=== PATIENT | male | born 1985 | race American Indian/Alaskan Native ===

== ENCOUNTER 2017-08-22 19:28 | Emergency (ER) | payer OTHER ==
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
[2017-08-22] MEDS ORDERED: PERCOCET 5/325 PO ONE (23:55)
[2017-08-23 04:40] VITALS: BP 120/74
== END 2017-08-23 04:40 | disposition home or self-care (01) ==
LOC: ED 19:28
DX: M25.561 Pain in right knee (principal); V89.2XXA Person injured in unspecified motor-vehicle accident, traffic, initial encounter; Y93.9 Activity, unspecified; Y99.9 Unspecified external cause status; Y92.410 Unspecified street and highway as the place of occurrence of the external cause
CPT/HCPCS: 99282

== ENCOUNTER 2021-09-28 23:40 | Inpatient (IN) | payer SELFPAY ==
--- NOTE | 2021-09-29 00:49 | Emergency Department Report ---
HPI - General Chief Complaint: Syncope Time Seen by Provider: 09/29/21 00:29 - HPI HPI: MSE 4 The patient is a 35-year-old male present with chief complaint of syncope. Patient states this evening he awakened to cook some food for his . The patient states he was in the kitchen making hamburgers when he began to feel dizzy. Patient began to walk back to the room to tell his how he is feeling when she states he collapsed forward striking his chest on a coffee table. The states she picked him up and laid him on the ground when he ap peared to shake. The states she attempted to roll him on his side and when she screamed he immediately stopped and looked at her and said "I am okay, I am okay." After coming to the patient noticed pain in his chest whenever he takes a deep breath. Of note 2 weeks ago the patient had an episode of left-sided chest pain described as a tightness that lasted approximately 8 hours. Patient states the pain came on at rest but eventually subsided after 8 hours. Patient denies history of shortness of breath, cough or fever. Patient admits to some nausea but denies vomiting or diarrhea. The patient has not received vaccinations against Covid but states he has tested twice a week and last tested negative 09/26/2021. Patient states he's never had a stress test or cardiac catheterization ED Past Medical Hx - Past Medical History Previous Medical History?: No - Surgical History Past Surgical History?: No - Family History Family history: no significant - Social History Smoking Status: Current Some Day Smoker (Black and milds) Substance Use Type: Alcohol (Rarely), Marijuana - Medications Home Medications: Home Medications Medication Instructions Recorded Confirmed Last Taken Type Ibuprofen [Motrin] 600 mg PO Q8H PRN #15 tablet 08/23/17 Unknown Rx ED Review of Systems ROS: Stated complaint: SYNCOPE EPISODE/SEIZURE/WEAKNESS Other details as noted in HPI Constitutional: denies: diaphoresis, fever Eyes: denies: eye pain ENT: denies: throat pain Respiratory: denies: cough, shortness of breath Cardiovascular: chest pain Endocrine: no symptoms reported Gastrointestinal: nausea. denies: vomiting Genitourinary: denies: dysuria Musculoskeletal: myalgia Neurological: denies: headache Physical Exam - Physical Exam Vital Signs: Vital Signs 09/29/21 00:21 Temperature 97.8 F Pulse Rate 63 Respiratory 18 Rate Blood Pressure 100/73 [Left] O2 Sat by Pulse 99 Oximetry Physical Exam: GENERAL: The patient is well-developed well-nourished male lying on stretcher not appearing to be in acute distress. [] HEENT: Normocephalic. Atraumatic. Extraocular motions are intact. Patient has moist mucous membranes. NECK: Supple. Trachea midline CHEST/LUNGS: Clear to auscultation. There is no respiratory distress noted. HEART/CARDIOVASCULAR: Regular. There is no tachycardia. There is no gallop rub or murmur. ABDOMEN: Abdomen is soft, nontender. Patient has normal bowel sounds. There is no abdominal distention. SKIN: There is no rash. There is no edema. There is no diaphoresis. NEURO: The patient is awake, alert, and oriented. The patient is cooperative. The patient has no focal neurologic deficits. The patient has normal speech. Cranial nerves II through XII grossly intact. GCS 15 MUSCULOSKELETAL: There is no evidence of acute injury. ED Course Vital Signs 09/29/21 00:21 Temperature 97.8 F Pulse Rate 63 Respiratory 18 Rate Blood Pressure 100/73 [Left] O2 Sat by Pulse 99 Oximetry ED Medical Decision Making - Lab Data Result diagrams: 09/29/21 00:50 09/29/21 00:50 - EKG Data -: EKG Interpreted by Me EKG shows normal: sinus rhythm Rate: bradycardia (58 bpm) - EKG Data When compared to previous EKG there are: previous EKG unavailable Interpretation: nonspecific ST-T wave giancarlo (Early repolarization, T wave inversion lead III) - Radiology Data Radiology results: pending (CT head) - Differential Diagnosis ACS, PE, dysrhythmia, electrolyte imbalance, seizure, Critical care attestation.: If time is entered above; I have spent that time in minutes in the direct care of this critically ill patient, excluding procedure time. ED Disposition Clinical Impression: Syncope Disposition: 09 ADMITTED INPATIENT Is pt being admited?: Yes Condition: Fair Instructions: Syncope (ED)
[2021-09-29 01:26] LABS: Basophils # (Auto) 0.1 K/mm3 (0.0-0.1); Basophils % (Auto) 0.8 % (0.0-1.8); Eosinophils # (Auto) 0.2 K/mm3 (0.0-0.4); Eosinophils % (Auto) 2.8 % (0.0-4.3); Hematocrit 46.1 % (35.5-45.6); Hemoglobin 15.8 gm/dl (11.8-15.2); Lymphocytes # (Auto) 3.4 K/mm3 (1.2-5.4); Lymphocytes % (Auto) 39.8 % (13.4-35.0); Mean Corpuscular HGB Conc 34 % (32-34); Mean Corpuscular Volume 89 fl (84-94); Monocytes # (Auto) 0.6 K/mm3 (0.0-0.8); Monocytes % (Auto) 6.9 % (0.0-7.3); Platelet Count 216 K/mm3 (140-440); Red Blood Count 5.17 M/mm3 (3.65-5.03); Red Cell Distribution Width 14.6 % (13.2-15.2)
--- NOTE | 2021-09-29 01:29 | Cat Scan Report ---
CT HEAD WITHOUT CONTRAST INDICATION / CLINICAL INFORMATION: Syncope. TECHNIQUE: All CT scans at this location are performed using CT dose reduction for ALARA by means of automated exposure control. COMPARISON: None available. FINDINGS: HEMORRHAGE: None. EXTRA-AXIAL SPACES: Normal in size and morphology for the patient's age. VENTRICULAR SYSTEM: Normal in size and morphology for the patient's age. CEREBRAL PARENCHYMA: No significant abnormality. No acute territorial infarct. MIDLINE SHIFT / HERNIATION: None. CEREBELLUM / BRAINSTEM: No significant abnormality. ORBITS: Normal as visualized. SOFT TISSUES: No significant abnormality. SKULL: No significant abnormality. PARANASAL SINUSES / MASTOID AIR CELLS: Normal as visualized. ADDITIONAL FINDINGS: None. IMPRESSION: 1. No acute intracranial abnormality. Signer Name: Puja Evans MD Signed: 09/29/2021 2:25 AM Workstation Name: [id number]
[2021-09-29 01:32] LABS: Alanine Aminotransferase 13 units/L (7-56); Albumin 4.2 g/dL (3.9-5); BUN/Creatinine Ratio 15; Blood Urea Nitrogen 17 mg/dL (9-20); Calcium 9.1 mg/dL (8.4-10.2); Hemolysis Index 8
[2021-09-29 01:35] LABS: Free T4 (Free Thyroxine) 1.03 ng/dL (0.76-1.46)
[2021-09-29] MEDS ORDERED: SODIUM CHLORIDE 0.9% 1000 ML 1,000 ML IV ONE (01:54)
[2021-09-29] MEDS ORDERED: HYDROmorphone 1 MG/1 ML INJ IV PRN (03:28)
[2021-09-29] MEDS ORDERED: MORPHINE 4 MG/1 ML INJ IV PRN (03:28)
[2021-09-29] MEDS ORDERED: ACETAMINOPHEN 325 MG TAB PO PRN (03:28)
[2021-09-29] MEDS ORDERED: SODIUM CHLORIDE 0.9% 1000 ML 1,000 ML IV SCH (03:30)
--- NOTE | 2021-09-29 03:34 | History and Physical Report ---
History of Present Illness Date of examination: 09/29/21 Date of admission: 09/29/21 Chief complaint: Syncope History of present illness: 35-year-old male with no significant past medical history was brought to the emergency room because of syncope. Patient was going to cook some food for his . The patient was in the kitchen making hamburgers when he began to feel dizzy. Patient began to walk back to the room to tell his how he is feeling when she states he collapsed forward striking his chest on a coffee table. The states she picked him up and laid him on the ground when he appeared to shake. The states she attempted to roll him on his side and when she screamed he immediately stopped and looked at her and said "I am okay, I am okay." After coming to the patient noticed pain in his chest whenever he takes a deep breath. Of note 2 weeks ago the patient had an episode of left- sided chest pain described as a tightness that lasted approximately 8 hours. Patient states the pain came on at rest but eventually subsided after 8 hours. Patient denies history of shortness of breath, cough or fever. Patient admits to some nausea but denies vomiting or diarrhea. The patient has not received vaccinations against Covid but states he has tested twice a week and last tested negative 09/26/2021. Patient states he's never had a stress test or cardiac catheterization Initial CT scan of the head shows no acute intracranial abnormality. All labs are okay as per the ER physician.'s were going to admit the patient. We will put the patient on IV fluid and do a echocardiogram and serial cardiac enzyme Med rec is not done Medications and Allergies Allergies Allergy/AdvReac Type Severity Reaction Status Date / Time No Known Allergies Allergy Unverified 08/22/17 23:52 Home Medications Medication Instructions Recorded Confirmed Last Taken Type Ibuprofen [Motrin] 600 mg PO Q8H PRN #15 tablet 08/23/17 Unknown Rx Active Meds: Active Medications Sodium Chloride (Sodium Chloride 0.9% 10 Ml Flush Syringe) 10 ml IV PRN PRN PRN Reason: LINE FLUSH Tramadol HCl (Tramadol 50 Mg Tab) 50 mg PO Q6H PRN PRN Reason: Pain, Moderate (4-6) Review of Systems All systems: negative Cardiovascular: chest pain, syncope Exam - Constitutional Vitals: Temp Pulse Resp BP Pulse Ox 97.8 F 56 L 13 106/71 100 09/29/21 00:21 09/29/21 02:30 09/29/21 02:30 09/29/21 02:30 09/29/21 02:30 General appearance: Present: no acute distress, well-nourished - EENT Eyes: Present: PERRL ENT: hearing intact, clear oral mucosa - Neck Neck: Present: supple, normal ROM - Respiratory Respiratory effort: normal Respiratory: bilateral: CTA - Cardiovascular Heart Sounds: Present: S1 & S2. Absent: rub, click - Extremities Extremities: pulses symmetrical, No edema Peripheral Pulses: within normal limits - Abdominal General gastrointestinal: Present: soft, non-tender, non-distended, normal bowel sounds Male genitourinary: Present: normal - Integumentary Integumentary: Present: clear, warm, dry - Musculoskeletal Musculoskeletal: gait normal, strength equal bilaterally - Psychiatric Psychiatric: appropriate mood/affect, intact judgment & insight - Neurologic Neurologic: CNII-XII intact, moves all extremities HEART Score - HEART Score Troponin: Troponin T < 0.010 ng/mL (0.00-0.029) 09/29/21 00:50 Results - Labs CBC & Chem 7: 09/29/21 00:50 09/29/21 00:50 Labs: Laboratory Last Values WBC 8.6 K/mm3 (4.5-11.0) 09/29/21 00:50 RBC 5.17 M/mm3 (3.65-5.03) H 09/29/21 00:50 Hgb 15.8 gm/dl (11.8-15.2) H 09/29/21 00:50 Hct 46.1 % (35.5-45.6) H 09/29/21 00:50 MCV 89 fl (84-94) 09/29/21 00:50 MCH 31 pg (28-32) 09/29/21 00:50 MCHC 34 % (32-34) 09/29/21 00:50 RDW 14.6 % (13.2-15.2) 09/29/21 00:50 Plt Count 216 K/mm3 (140-440) 09/29/21 00:50 Lymph % (Auto) 39.8 % (13.4-35.0) H 09/29/21 00:50 Sawyer % (Auto) 6.9 % (0.0-7.3) 09/29/21 00:50 Eos % (Auto) 2.8 % (0.0-4.3) 09/29/21 00:50 Baso % (Auto) 0.8 % (0.0-1.8) 09/29/21 00:50 Lymph # (Auto) 3.4 K/mm3 (1.2-5.4) 09/29/21 00:50 Sawyer # (Auto) 0.6 K/mm3 (0.0-0.8) 09/29/21 00:50 Eos # (Auto) 0.2 K/mm3 (0.0-0.4) 09/29/21 00:50 Baso # (Auto) 0.1 K/mm3 (0.0-0.1) 09/29/21 00:50 Seg Neutrophils % 49.7 % (40.0-70.0) 09/29/21 00:50 Seg Neutrophils # 4.3 K/mm3 (1.8-7.7) 09/29/21 00:50 D-Dimer 135 ng/mlDDU (0-234) 09/29/21 00:50 Estimated GFR > 60 ml/min 09/29/21 00:50 BUN/Creatinine Ratio 15 % 09/29/21 00:50 Troponin T < 0.010 ng/mL (0.00-0.029) 09/29/21 00:50 Albumin/Globulin Ratio 1.3 % 09/29/21 00:50 TSH 3.010 mlU/mL (0.270-4.200) 09/29/21 00:50 Free T4 1.03 ng/dL (0.76-1.46) 09/29/21 00:50 Plasma/Serum Alcohol < 0.01 % (0-0.07) 09/29/21 00:50 - Imaging and Cardiology CT Scan - head: report reviewed Assessment and Plan VTE prophylaxis?: Chemical Plan of care discussed with patient/family: Yes - Patient Problems (1) Syncope Current Visit: Yes Status: Acute Plan to address problem: Admit the patient to the medical telemetry. Aspirin 325 mg p.o. daily. Lipitor 40 mg p.o. daily. Normal saline at the rate of 100 cc/h. Serial cardiac enzymes. Echocardiogram. Consult cardiology if needed (2) DVT prophylaxis Current Visit: Yes Status: Acute Plan to address problem: Heparin 5000 units subcu every 8 hours for DVT prophylaxis. Pepcid 20 mg p.o. twice daily for GI prophylaxis. Patient is a full code.
[2021-09-29] MEDS: HEPARIN 5,000 UNIT/1 ML VIAL SUB-Q SCH ×3 (06:52→21:37)
[2021-09-29] MEDS: PANTOPRAZOLE 40 MG TAB PO SCH (09:06)
--- NOTE | 2021-09-29 10:34 | Discharge Summary ---
Providers - Providers Date of Admission: 09/29/21 05:02 Date of discharge: 09/29/21 Attending physician: JOHN MENDEZ MD 09/29/21 Consult to Cardiac Rehabilitation [CONS] Routine Reason For Exam: Phase I Primary care physician: JC ESPINO MD Hospitalization Condition: Fair Exam - Constitutional Vitals: Temp Pulse Resp BP Pulse Ox 97.8 F 55 L 10 L 113/62 97 09/29/21 00:21 09/29/21 06:25 09/29/21 06:00 09/29/21 06:00 09/29/21 06:28 Plan Follow up with: JC ESPINO MD [Primary Care Provider] - 7 Days
--- NOTE | 2021-09-29 11:47 | Electrocardiograph Report ---
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
--- NOTE | 2021-09-29 11:48 | Electrocardiograph Report ---
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
--- NOTE | 2021-09-29 13:03 | Progress Note ---
Assessment and Plan Assessment and plan: Assessment and plan #New onset HFrEF -Echo demonstrates EF 35 to 40% -Appears euvolemic on encounter, no respiratory distress, no pedal edema. Cardiology consulted for further work-up and evaluation Monitor I's and O's, avoid excessive fluid administration Started on GDMT: coreg, lisinopril. #Syncope Admit the patient to the medical telemetry. Aspirin 325 mg p.o. daily. Lipitor 40 mg p.o. daily. Discontinue normal saline at the rate of 100 cc/h. Serial cardiac enzymes. Echocardiogram findings as above. Consult cardiology #DVT prophylaxis Heparin 5000 units subcu every 8 hours for DVT prophylaxis. Pepcid 20 mg p.o. twice daily for GI prophylaxis. Patient is a full code. History Interval history: Resting comfortably on exam this morning. No acute complaints Hospitalist Physical - Physical exam Narrative exam: Physical Exam: VITAL SIGNS: Reviewed. GENERAL: The patient appears normally developed, Vital signs as documented. HEAD: No signs of head trauma. EYES: Pupils are equal. Extraocular motions intact. EARS: Hearing grossly intact. MOUTH: Oropharynx is normal. NECK: No adenopathy, no JVD. CHEST: Chest with clear breath sounds bilaterally. No wheezes, rales, or rhonchi. CARDIAC: Regular rate and rhythm. S1 and S2, without murmurs, gallops, or rubs. VASCULAR: No Edema. Peripheral pulses normal and equal in all extremities. ABDOMEN: Soft, non tender and non distended. No rebound or guarding, and no masses palpated. Bowel Sounds normal. MUSCULOSKELETAL: Good range of motion of all major joints. Extremities without clubbing, cyanosis or edema. NEUROLOGIC EXAM: Alert and oriented x 4. no focal sensory or strength deficits. PSYCHIATRIC: Mood normal. SKIN: detail exam as documented in skin assessment - Constitutional Vitals: Temp Pulse Resp BP Pulse Ox 97.6 F 59 L 18 114/71 97 09/29/21 07:53 09/29/21 12:20 09/29/21 12:20 09/29/21 12:20 09/29/21 12:20 General appearance: Present: no acute distress, well-nourished HEART Score - HEART Score Troponin: Troponin T < 0.010 ng/mL (0.00-0.029) 09/29/21 09:26 Results - Labs CBC & Chem 7: 11/07/21 00:50 09/29/21 00:50 Labs: Laboratory Last Values WBC 8.6 K/mm3 (4.5-11.0) 09/29/21 00:50 RBC 5.17 M/mm3 (3.65-5.03) H 09/29/21 00:50 Hgb 15.8 gm/dl (11.8-15.2) H 09/29/21 00:50 Hct 46.1 % (35.5-45.6) H 09/29/21 00:50 MCV 89 fl (84-94) 09/29/21 00:50 MCH 31 pg (28-32) 09/29/21 00:50 MCHC 34 % (32-34) 09/29/21 00:50 RDW 14.6 % (13.2-15.2) 09/29/21 00:50 Plt Count 216 K/mm3 (140-440) 09/29/21 00:50 Lymph % (Auto) 39.8 % (13.4-35.0) H 09/29/21 00:50 [place] % (Auto) 6.9 % (0.0-7.3) 09/29/21 00:50 Eos % (Auto) 2.8 % (0.0-4.3) 09/29/21 00:50 Baso % (Auto) 0.8 % (0.0-1.8) 09/29/21 00:50 Lymph # (Auto) 3.4 K/mm3 (1.2-5.4) 09/29/21 00:50 [place] # (Auto) 0.6 K/mm3 (0.0-0.8) 09/29/21 00:50 Eos # (Auto) 0.2 K/mm3 (0.0-0.4) 09/29/21 00:50 Baso # (Auto) 0.1 K/mm3 (0.0-0.1) 09/29/21 00:50 Seg Neutrophils % 49.7 % (40.0-70.0) 09/29/21 00:50 Seg Neutrophils # 4.3 K/mm3 (1.8-7.7) 09/29/21 00:50 D-Dimer 135 ng/mlDDU (0-234) 09/29/21 00:50 Estimated GFR > 60 ml/min 09/29/21 00:50 BUN/Creatinine Ratio 15 % 09/29/21 00:50 Troponin T < 0.010 ng/mL (0.00-0.029) 09/29/21 09:26 Albumin/Globulin Ratio 1.3 % 09/29/21 00:50 TSH 3.010 mlU/mL (0.270-4.200) 09/29/21 00:50 Free T4 1.03 ng/dL (0.76-1.46) 09/29/21 00:50 Plasma/Serum Alcohol < 0.01 % (0-0.07) 09/29/21 00:50 Gutierrez/IV: Voiding Method Urinal Active Medications - Current Medications Current Medications: Generic Name Dose Route Start Last Admin Trade Name Freq PRN Reason Stop Dose Admin Acetaminophen 650 mg 09/29/21 03:28 Acetaminophen 325 Mg Tab PO Q6H PRN Pain, Mild (1-3) Aspirin 325 mg 09/30/21 10:00 Aspirin Ec 325 Mg Tab PO QDAY [facility] Atorvastatin Calcium 40 mg 09/29/21 22:00 Atorvastatin 40 Mg Tab PO QHS CHARLEEN Heparin Sodium (Porcine) 5,000 unit 09/29/21 06:00 09/29/21 06:52 Heparin 5,000 Unit/1 Ml Vial SUB-Q 5,000 unit Q8HR [facility] Administration Hydromorphone HCl 0.25 mg 09/29/21 03:28 Hydromorphone 1 Mg/1 Ml Inj IV Q5MIN PRN Chest Pain Morphine Sulfate 2 mg 09/29/21 03:28 Morphine 4 Mg/1 Ml Inj IV Q5MIN PRN Chest Pain unrelieved by NTG Pantoprazole Sodium 40 mg 09/29/21 10:00 09/29/21 09:06 Pantoprazole 40 Mg Tab PO 40 mg QDAY CHARLEEN Administration Sodium Chloride 10 ml 09/29/21 03:28 Sodium Chloride 0.9% 10 Ml Flush Syringe IV PRN PRN LINE FLUSH Tramadol HCl 50 mg 09/29/21 03:28 Tramadol 50 Mg Tab PO Q6H PRN Pain, Moderate (4-6)
[2021-09-29] MEDS: carvediloL 3.125 MG TAB PO SCH ×2 (14:30→21:37)
[2021-09-29] MEDS: LISINOPRIL 5 MG TAB PO SCH (14:31)
[2021-09-29 18:20] LABS: Amphetamine Screen,Urine Negative; Benzodiazepines Screen,Urine Negative; Cocaine Screen,Urine Negative; Methadone Screen,Urine Negative; Opiate Screen,Urine Negative
[2021-09-29 18:49] LABS: Cannabinoid Screen,Urine Positive
[2021-09-29] MEDS: traMADol 50 MG TAB PO PRN (21:40)
[2021-09-30] MEDS: HEPARIN 5,000 UNIT/1 ML VIAL SUB-Q SCH ×3 (06:48→21:44)
[2021-09-30] MEDS: ASPIRIN EC 325 MG TAB PO SCH (09:11)
[2021-09-30] MEDS: LISINOPRIL 5 MG TAB PO SCH (09:11)
[2021-09-30] MEDS: PANTOPRAZOLE 40 MG TAB PO SCH (09:11)
[2021-09-30] MEDS: carvediloL 3.125 MG TAB PO SCH ×2 (09:12→21:43)
[2021-09-30] MEDS ORDERED: REGADENOSON 0.4 MG/5 ML INJ IV ONE (09:39)
--- NOTE | 2021-09-30 14:10 | Consultation ---
History of Present Illness Consult date: 09/30/21 Requesting physician: JOHN MENDEZ Consult reason: congestive heart failure History of present illness: Patient is a 35-year-old male with no past medical history who was brought to the ED due to a complaint of syncope. Patient reports that while cooking dinner for his fiance he began to feel dizzy and weak. As he went to go tell his fiance he was feeling unwell he reports collapsing on the floor. He states he did not blackout but per his fiance she states he was shaking and having jerking movements. She states that when she turned him on his side after a few moments he stopped shaking and came to. He denies any history of similar events. Patient denies any chest pain, nausea, vomiting, difficulty breathing, shortness of breath or palpitations. Patient is previously unknown to our practice. Cardiology is consulted for heart failure. Past History Past Medical History: No medical history Past Surgical History: No surgical history Social history: smoking Family history: CAD Medications and Allergies Allergies Allergy/AdvReac Type Severity Reaction Status Date / Time No Known Allergies Allergy Verified 09/29/21 03:33 Home Medications Medication Instructions Recorded Confirmed Last Taken Type Ibuprofen [Motrin] 600 mg PO Q8H PRN #15 tablet 08/23/17 09/29/21 Unknown Rx Active Meds: Active Medications Acetaminophen (Acetaminophen 325 Mg Tab) 650 mg PO Q6H PRN PRN Reason: Pain, Mild (1-3) Aspirin (Aspirin Ec 325 Mg Tab) 325 mg PO QDAY [facility] Last Admin: 09/30/21 09:11 Dose: 325 mg Documented by: Atorvastatin Calcium (Atorvastatin 40 Mg Tab) 40 mg PO QHS [facility] Last Admin: 09/29/21 21:37 Dose: 40 mg Documented by: Carvedilol (Carvedilol 3.125 Mg Tab) 3.125 mg PO BID [facility] Last Admin: 09/30/21 09:12 Dose: Not Given Documented by: Heparin Sodium (Porcine) (Heparin 5,000 Unit/1 Ml Vial) 5,000 unit SUB-Q Q8HR [facility] Last Admin: 09/30/21 06:48 Dose: 5,000 unit Documented by: Hydromorphone HCl (Hydromorphone 1 Mg/1 Ml Inj) 0.25 mg IV Q5MIN PRN PRN Reason: Chest Pain Lisinopril (Lisinopril 5 Mg Tab) 5 mg PO QDAY [facility] Last Admin: 09/30/21 09:11 Dose: 5 mg Documented by: Morphine Sulfate (Morphine 4 Mg/1 Ml Inj) 2 mg IV Q5MIN PRN PRN Reason: Chest Pain unrelieved by NTG Pantoprazole Sodium (Pantoprazole 40 Mg Tab) 40 mg PO QDAY [facility] Last Admin: 09/30/21 09:11 Dose: 40 mg Documented by: Sodium Chloride (Sodium Chloride 0.9% 10 Ml Flush Syringe) 10 ml IV PRN PRN PRN Reason: LINE FLUSH Tramadol HCl (Tramadol 50 Mg Tab) 50 mg PO Q6H PRN PRN Reason: Pain, Moderate (4-6) Last Admin: 09/29/21 21:40 Dose: 50 mg Documented by: Review of Systems All systems: negative Constitutional: fatigue, weakness, no weight loss, no weight gain, no fever, no chills Ears, nose, mouth and throat: no nasal discharge, no sinus pressure, no sinus pain Cardiovascular: syncope, no chest pain, no orthopnea, no rapid/irregular heart beat Respiratory: no shortness of breath, no dyspnea on exertion, no congestion, no wheezing Gastrointestinal: no abdominal pain, no nausea, no vomiting Musculoskeletal: no neck stiffness, no neck pain, no shooting arm pain Integumentary: no rash, no pruritis, no redness Neurological: weakness, syncope Psychiatric: no anxiety, no memory loss Endocrine: no cold intolerance, no heat intolerance Hematologic/Lymphatic: no easy bruising, no easy bleeding Physical Examination Vital Signs Temp Pulse Resp BP Pulse Ox 97.8 F 63 18 100/73 99 09/29/21 00:21 09/29/21 00:21 09/29/21 00:21 09/29/21 00:21 09/29/21 00:21 General appearance: no acute distress HEENT: Positive: PERRL Neck: Positive: trachea midline Cardiac: Positive: Regular Rhythm, Bradycardia Lungs: Positive: Normal Breath Sounds Neuro: Positive: Grossly Intact Abdomen: Positive: Soft, Active Bowel Sounds Skin: Negative: Rash, Suspicious Lesions, Ulceration Extremities: Present: upper extr. pulses, lower extr. pulses. Absent: edema Results 09/29/21 00:50 09/29/21 00:50 - Imaging and Cardiology Echo: report reviewed EKG: report reviewed EKG interpretations - Telemetry EKG Rhythm: Sinus Bradycardia - EKG Sinus rhythms and dysrhythmias: sinus rhythm Assessment and Plan Echo 09/29/2021-EF 35 to 40%, moderate global LV hypokinesis right ventricle systolic function is normal. Left and right atrium are normal in size. Lexiscan MPI stress test 09/30/2021-preliminary results are negative for ischemia EKG shows normal sinus rhythm 58. No acute ischemic changes. Troponins negative x2. AMI ruled out Agree with aspirin, Coreg, lisinopril Recommend neuro consult Patient cardiac status stable for discharge Patient has a follow-up appointment with Dr. Mahmood, [facility] performance specialist, on 10/15/2021 at 1 PM in our [place] location. Phone [phone] Patient seen in conjunction with Dr. Mahmood who agrees with this plan of care. Will sign off - Patient Problems (1) Cardiomyopathy Current Visit: Yes Status: Acute (2) HFrEF (heart failure with reduced ejection fraction) Current Visit: Yes Status: Acute (3) Bradycardia Current Visit: Yes Status: Acute (4) Syncope Current Visit: Yes Status: Acute
--- NOTE | 2021-09-30 15:54 | Progress Note ---
Assessment and Plan Assessment and plan: Hospital Course: Discussed with cardiology. Will continue with GDMT for ew onset heart fialure. Cardiac stress test this morning negative for ischemia. Discussed case with cardiology regarding syncope who recommends evaluation by neurology due to concern for possible siezure prior to admission. Will consult agricultural education teacher neuro. Assessment and plan #New onset HFrEF -Echo demonstrates EF 35 to 40% -Appears euvolemic on encounter, no respiratory distress, no pedal edema. Cardiology consulted for further work-up and evaluation Monitor I's and O's, avoid excessive fluid administration Started on GDMT: coreg, lisinopril. #Syncope Admit the patient to the medical telemetry. Aspirin 325 mg p.o. daily. Lipitor 40 mg p.o. daily. Discontinue normal saline at the rate of 100 cc/h. Serial cardiac enzymes. Echocardiogram findings as above. Consult cardiology house calls nurse practitioner neuro (Dr Gottlieb consulted). #DVT prophylaxis Heparin 5000 units subcu every 8 hours for DVT prophylaxis. Pepcid 20 mg p.o. twice daily for GI prophylaxis. Patient is a full code. History Interval history: Resting comfortably on exam this morning. No acute complaints Hospitalist Physical - Physical exam Narrative exam: Physical Exam: VITAL SIGNS: Reviewed. GENERAL: The patient appears normally developed, Vital signs as documented. HEAD: No signs of head trauma. EYES: Pupils are equal. Extraocular motions intact. EARS: Hearing grossly intact. MOUTH: Oropharynx is normal. NECK: No adenopathy, no JVD. CHEST: Chest with clear breath sounds bilaterally. No wheezes, rales, or rhonchi. CARDIAC: Regular rate and rhythm. S1 and S2, without murmurs, gallops, or r ubs. VASCULAR: No Edema. Peripheral pulses normal and equal in all extremities. ABDOMEN: Soft, non tender and non distended. No rebound or guarding, and no masses palpated. Bowel Sounds normal. MUSCULOSKELETAL: Good range of motion of all major joints. Extremities without clubbing, cyanosis or edema. NEUROLOGIC EXAM: Alert and oriented x 4. no focal sensory or strength deficits. PSYCHIATRIC: Mood normal. SKIN: detail exam as documented in skin assessment - Constitutional Vitals: Temp Pulse Resp BP Pulse Ox 98.7 F 53 L 18 134/82 98 09/30/21 08:14 09/30/21 08:14 09/30/21 08:14 09/30/21 11:37 09/30/21 08:14 General appearance: Present: no acute distress HEART Score - HEART Score Troponin: Troponin T < 0.010 ng/mL (0.00-0.029) 09/29/21 09:26 Results - Labs CBC & Chem 7: 09/29/21 00:50 09/29/21 00:50 Labs: Laboratory Last Values WBC 8.6 K/mm3 (4.5-11.0) 09/29/21 00:50 RBC 5.17 M/mm3 (3.65-5.03) H 09/29/21 00:50 Hgb 15.8 gm/dl (11.8-15.2) H 09/29/21 00:50 Hct 46.1 % (35.5-45.6) H 09/29/21 00:50 MCV 89 fl (84-94) 09/29/21 00:50 MCH 31 pg (28-32) 09/29/21 00:50 MCHC 34 % (32-34) 09/29/21 00:50 RDW 14.6 % (13.2-15.2) 09/29/21 00:50 Plt Count 216 K/mm3 (140-440) 09/29/21 00:50 Lymph % (Auto) 39.8 % (13.4-35.0) H 09/29/21 00:50 [place] % (Auto) 6.9 % (0.0-7.3) 09/29/21 00:50 Eos % (Auto) 2.8 % (0.0-4.3) 09/29/21 00:50 Baso % (Auto) 0.8 % (0.0-1.8) 09/29/21 00:50 Lymph # (Auto) 3.4 K/mm3 (1.2-5.4) 09/29/21 00:50 [place] # (Auto) 0.6 K/mm3 (0.0-0.8) 09/29/21 00:50 Eos # (Auto) 0.2 K/mm3 (0.0-0.4) 09/29/21 00:50 Baso # (Auto) 0.1 K/mm3 (0.0-0.1) 09/29/21 00:50 Seg Neutrophils % 49.7 % (40.0-70.0) 09/29/21 00:50 Seg Neutrophils # 4.3 K/mm3 (1.8-7.7) 09/29/21 00:50 D-Dimer 135 ng/mlDDU (0-234) 09/29/21 00:50 Estimated GFR > 60 ml/min 09/29/21 00:50 BUN/Creatinine Ratio 15 % 09/29/21 00:50 Troponin T < 0.010 ng/mL (0.00-0.029) 09/29/21 09:26 Albumin/Globulin Ratio 1.3 % 09/29/21 00:50 TSH 3.010 mlU/mL (0.270-4.200) 09/29/21 00:50 Free T4 1.03 ng/dL (0.76-1.46) 09/29/21 00:50 Urine Opiates Screen Negative 09/29/21 Unknown Urine Methadone Screen Negative 09/29/21 Unknown Ur Barbiturates Screen Negative 09/29/21 Unknown Ur Phencyclidine Scrn Negative 09/29/21 Unknown Ur Amphetamines Screen Negative 09/29/21 Unknown U Benzodiazepines Scrn Negative 09/29/21 Unknown Urine Cocaine Screen Negative 09/29/21 Unknown U Marijuana (THC) Screen Positive 09/29/21 Unknown Drugs of Abuse Note Disclamer 09/29/21 Unknown Plasma/Serum Alcohol < 0.01 % (0-0.07) 09/29/21 00:50 Gutierrez/IV: Voiding Method Urinal Active Medications - Current Medications Current Medications: Generic Name Dose Route Start Last Admin Trade Name Freq PRN Reason Stop Dose Admin Acetaminophen 650 mg 09/29/21 03:28 Acetaminophen 325 Mg Tab PO Q6H PRN Pain, Mild (1-3) Aspirin 325 mg 09/30/21 10:00 09/30/21 09:11 Aspirin Ec 325 Mg Tab PO 325 mg QDAY CHARLEEN Administration Atorvastatin Calcium 40 mg 09/29/21 22:00 09/29/21 21:37 Atorvastatin 40 Mg Tab PO 40 mg QHS CHARLEEN Administration Carvedilol 3.125 mg 09/29/21 14:00 09/30/21 09:12 Carvedilol 3.125 Mg Tab PO Not Given BID CHARLEEN Heparin Sodium (Porcine) 5,000 unit 09/29/21 06:00 09/30/21 14:17 Heparin 5,000 Unit/1 Ml Vial SUB-Q Not Given Q8HR CHARLEEN Hydromorphone HCl 0.25 mg 09/29/21 03:28 Hydromorphone 1 Mg/1 Ml Inj IV Q5MIN PRN Chest Pain Lisinopril 5 mg 09/29/21 14:00 09/30/21 09:11 Lisinopril 5 Mg Tab PO 5 mg QDAY CHARLEEN Administration Morphine Sulfate 2 mg 09/29/21 03:28 Morphine 4 Mg/1 Ml Inj IV Q5MIN PRN Chest Pain unrelieved by NTG Pantoprazole Sodium 40 mg 09/29/21 10:00 09/30/21 09:11 Pantoprazole 40 Mg Tab PO 40 mg QDAY [facility]LEEN Administration Sodium Chloride 10 ml 09/29/21 03:28 Sodium Chloride 0.9% 10 Ml Flush Syringe IV PRN PRN LINE FLUSH Tramadol HCl 50 mg 09/29/21 03:28 09/29/21 21:40 Tramadol 50 Mg Tab PO 50 mg Q6H PRN Administration Pain, Moderate (4-6)
[2021-09-30] MEDS: traMADol 50 MG TAB PO PRN (21:43)
[2021-10-01] MEDS: HEPARIN 5,000 UNIT/1 ML VIAL SUB-Q SCH (06:59)
--- NOTE | 2021-10-01 08:22 | Discharge Summary ---
Providers - Providers Date of Admission: 09/29/21 05:02 Date of discharge: 10/01/21 Attending physician: SREEKANTH LONG 09/29/21 Consult to Cardiac Rehabilitation [CONS] Routine Reason For Exam: Phase I 09/29/21 12:48 Consult to Physician [CONS] Routine Comment: Consulting Provider: LEBRON BURT Physician Instructions: Reason For Exam: new onset CHF 09/30/21 15:51 Consult to Physician [CONS] Routine Comment: Consulting Provider: CHIQUIS MUELLER Physician Instructions: Reason For Exam: siezure Primary care physician: QC ANALYST Hospitalization Reason for admission: new onset CHF, syncope Condition: Fair Hospital course: 35-year-old male with no past medical history who was brought to the ED due to a complaint of syncope. Patient reports that while cooking dinner for his fiance he began to feel dizzy and weak. As he went to go tell his fiance he was feeling unwell he reports collapsing on the floor. He states he did not blackout but per his fiance she states he was shaking and having jerking movements. She states that when she turned him on his side after a few moments he stopped shaking and came to. He denies any history of similar events. The patient was admitted with diagnosis of syncope and new onset CHF. Patient had echocardiogram completed on this admission which revealed EF 35 to 40%, moderate global LV hypokinesis right ventricle systolic function is normal. Left and right atrium are normal in size. The patient also had Lexiscan MPI stress test that revealed no ischemia. Cardiac isoenzymes were negative. Cardiology recommended aspirin, Coreg and lisinopril. Also, recommendations were for neuro follow-up for possible new onset seizure. Patient will have MRI of the brain today and if found to be negative will discharge home with outpatient follow-up for EEG. Neurology follow-up today. Cardiology signed off for the cardiomyopathy, HFrEF and bradycardia. Dedicated discharge time 35 minutes Disposition: HOME / SELF CARE / HOMELESS Final Discharge Diagnosis (Prints w/discharge instructions): Cardiomyopathy, HFrEF, bradycardia, syncope Core Measure Documentation - Palliative Care Palliative Care/ Comfort Measures: Not Applicable - Core Measures Any of the following diagnoses?: heart failure - Heart Failure Discharge Requirements CHYNA/ARB for LVSD if EF <40%: Yes Beta jamey at discharge: Yes Exam - Constitutional Vitals: Temp Pulse Resp BP Pulse Ox 97.9 F 48 L 14 106/66 100 10/01/21 03:52 10/01/21 03:52 10/01/21 03:52 10/01/21 03:52 10/01/21 03:52 General appearance: Present: no acute distress, well-nourished - EENT Eyes: Present: PERRL ENT: hearing intact, clear oral mucosa - Neck Neck: Present: supple, normal ROM - Respiratory Respiratory effort: normal Respiratory: bilateral: CTA - Cardiovascular Heart Sounds: Present: S1 & S2. Absent: rub, click - Extremities Extremities: pulses symmetrical, No edema Peripheral Pulses: within normal limits - Abdominal General gastrointestinal: Present: soft, non-tender, non-distended, normal bowel sounds Male genitourinary: Present: normal - Integumentary Integumentary: Present: clear, warm, dry - Musculoskeletal Musculoskeletal: gait normal, strength equal bilaterally - Psychiatric Psychiatric: appropriate mood/affect, intact judgment & insight - Neurologic Neurologic: CNII-XII intact, moves all extremities Plan Activity: advance as tolerated, no driving until cleared by PCP Weight Bearing Status: Weight Bear as Tolerated Diet: low fat, low cholesterol, low salt Additional Instructions: Follow-up with Dr. India calderon as an outpatient for follow-up EEG and no driving until cleared by neurology Follow up with: PRIMARY CARE, [Primary Care Provider] - 7 Days CHIQUIS MUELLER MD [Staff Physician] - 7 Days Prescriptions: carvediloL [Coreg] 3.125 mg PO BID #60 tablet Aspirin EC [Ecotrin] 325 mg PO QDAY #30 tablet AtorvaSTATin [Lipitor] 40 mg PO QHS #30 tablet lisinopriL [Zestril TAB] 5 mg PO QDAY #30 tablet
[2021-10-01 09:13] VITALS: BP 108/70
--- NOTE | 2021-10-01 09:40 | Nuclear Medicine Report ---
APPROVED REPORT Exam: Nuclear Stress Test Indication: [facility] Ht: 5 ft 11 in Wt: 188 lbs BSA: 2.05 m2 BMI: 26.21 Rhythm: Sinus Bradycardia Stress Test Details Stress Test: Exercise stress testing was performed using a modified Kamar protocol. HR Resting HR: 53 bpm Max HR Achieved: 157 bpm Max Heart Rate (APMHR): 183 bpm Target HR (85% APMHR): 155 bpm % of APMHR: 85 Recovery HR: 77 bpm HR response to stress: Normal HR response to stress BP Resting BP: 114/80 mmHg Max BP: 172/85 mmHg Recovery BP: 134/82 mmHg BP response to stress: Normal blood pressure response to stress. ECG Resting ECG: Sinus Bradycardia Stress ECG: Sinus Tachycardia ST Change: None Arrhythmia: VPC, None Recovery ECG: Sinus Rhythm Recovery ST Change: None Recovery Arrhythmia: None, VPC Clinical Reason for Termination: Fatigue Stress Symptoms: None Exercise duration: 12 min 00 sec Exercise capacity: 12.2 METs Overall Exercise Capacity for Age: Good NM EXAM: Myocardial Perfusion REST/STRESS Imaging Protocol: Rest Tc-99m/Stress Tc-99m 1 day Resting Data Rest SPECT myocardial perfusion imaging was performed in supine position 45 minutes following the intravenous injection of 10 mCi of Tc-99m Myoview. Time of rest injection: 0915 Exercise Stress At peak stress, the patient was injected intravenously with 28mCi of Tc-99m Myoview. Time of stress injection: 1130 Gated Stress SPECT was performed 20 minutes after stress injection. The images were gated to evaluate regional wall motion and calculate left ventricular ejection fraction. Study Quality Study: excellent Lung Uptake: Normal Study Data TID = 0.91. Perfusion Wall Motion The rest and stress images show normal left ventricular wall motion..Calculated LVEF 52% post exercise. Nuclear Conclusion ECG Findings: negative for ischemia Clinical Findings: negative for ischemia Nuclear Findings: negative for ischemia Exercise Capacity: normal Left Ventricular Function: normal Risk Study: low Normal study. No scintigraphic evidence for myocardial ischemia or scar.
[2021-10-01] MEDS: PANTOPRAZOLE 40 MG TAB PO SCH (10:26)
[2021-10-01] MEDS: carvediloL 3.125 MG TAB PO SCH (10:26)
[2021-10-01] MEDS: ASPIRIN EC 325 MG TAB PO SCH (10:26)
[2021-10-01] MEDS: LISINOPRIL 5 MG TAB PO SCH (10:26)
--- NOTE | 2021-10-01 11:12 | Magnetic Resonance Report ---
NONENHANCED MR SCAN OF THE BRAIN: INDICATION / CLINICAL INFORMATION: Sz vs Syncope. TECHNIQUE: Multiplanar, multisequence MR images of the brain obtained. COMPARISON: CT scan of the head from 09/29/2021 FINDINGS: BRAIN / INTRACRANIAL CONTENTS: No acute ischemia, acute hemorrhage, mass effect, midline shift, or hy drocephalus. No chronic infarct or atrophy. No significant white matter abnormality. No space taking lesion in the temporal lobes are in the frontal lobes; minimal volume loss in the rig ht hippocampus; no MR findings to suggest cortical development malformation or heterotopia CRANIOCERVICAL JUNCTION: No significant abnormality. VASCULAR FLOW-VOIDS: No significant abnormality. ORBITS: No significant abnormality of visualized orbits. SINUSES / MASTOIDS: No significant abnormality of visualized sinuses and mastoid air cells. ADDITIONAL FINDINGS: None. IMPRESSION: No acute focal parenchymal lesion in the brain Signer Name: Mika Treadwell MD Signed: 10/01/2021 11:08 AM Workstation Name: [id number]
--- NOTE | 2021-10-03 09:56 | Electrocardiograph Report ---
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
== END 2021-10-01 15:15 | disposition home or self-care (01) | DRG 292 ==
LOC: ED 23:40 → 4A 09-29 05:02
PROVIDERS: ADMIT Hospitalist; ATTEND Hospitalist
DX: I50.21 Acute systolic (congestive) heart failure (principal); I42.9 Cardiomyopathy, unspecified; R55 Syncope and collapse; R00.1 Bradycardia, unspecified; F17.200 Nicotine dependence, unspecified, uncomplicated; Z20.822 Contact with and (suspected) exposure to COVID-19; Z82.49 Family history of ischemic heart disease and other diseases of the circulatory system
CPT/HCPCS: 36415; 70450; 70551; 78452; 80053; 80307; 80320; 83735; 83880; 84439; 84443; 84484; 85025; 85379; 93005; 93017; 93306; G0378; A9502; G0480; J1644; J7030